=== PATIENT | female | born 1995 | race Caucasian/White ===

== ENCOUNTER 2016-12-24 03:40 | Emergency (ER) | payer OTHER, MEDICAID | END 2016-12-24 06:34 | disposition home or self-care (01) | LOC: ER 03:40 | DX: O23.10 Infections of bladder in pregnancy, unspecified trimester (principal); Z3A.00 Weeks of gestation of pregnancy not specified; O99.330 Smoking (tobacco) complicating pregnancy, unspecified trimester | CPT/HCPCS: 36415; 80053; 81001; 81025; 83690; 84702; 85025; 86901; 87088; 87491; 87591; 87800 ==